=== PATIENT | female | born 1995 | race American Indian/Alaskan Native ===

== ENCOUNTER 2019-06-16 16:00 | Emergency (ER) | payer SELFPAY ==
--- NOTE | 2019-06-16 16:19 | Emergency Department Report ---
Blank Doc - Documentation Documentation: 24-year-old female that presents with urinary changes. This initial assessment/diagnostic orders/clinical plan/treatment(s) is/are subject to change based on patient's health status, clinical progression and re- assessment by fellow clinical providers in the ED. Further treatment and workup at subsequent clinical providers discretion. Patient/guardians urged not to elope from the ED as their condition may be serious if not clinically assessed and managed. Initial orders include: 1- Patient sent to [facility] for further evaluation and treatment 2- UA
[2019-06-16 16:22] VITALS: BP 104/58
[2019-06-16 17:07] LABS: Bacteria,Urine 1+ /HPF (Negative); Bilirubin,Urine NEG (Negative); Blood,Urine LG (Negative); Color,Urine Amber (Yellow); Mucus,Urine 2+ /HPF
[2019-06-16 17:10] LABS: RBC,Urine > 182.0 /HPF (0.0-6.0); WBC,Urine > 182.0 /HPF (0.0-6.0)
[2019-06-16 17:12] LABS: HCG Qualitative,Urine Negative (Negative)
[2019-06-16] MEDS ORDERED: LIDOCAINE-MPF (1%) 10 MG/1 ML VIAL 5 ML INFILTRATI ONE (20:33)
--- NOTE | 2019-06-16 20:38 | Emergency Department Report ---
ED Female HPI - General Chief complaint: Urogenital-Female Stated complaint: UTI Time Seen by Provider: 06/16/19 16:18 Source: patient Mode of arrival: Ambulatory Limitations: No Limitations - History of Present Illness Initial comments: Patient is a 24-year-old female presents emergency room with complaints of dysuria that began 3 days ago. Patient states she has associated suprapubic pressure. She denies any nausea, vomiting, fever, back pain, any other symptoms. She does not report any vaginal discharge or vaginal complaints. She states she does not have any past medical history. She denies any allergies medications. Last menstrual cycle 05/31/19. - Related Data Previous Rx's Medication Instructions Recorded Last Taken Type Phenazopyridine [Pyridium] 100 mg PO TID PRN #10 tab 06/16/19 Unknown Rx cephALEXin [Keflex] 500 mg PO Q12HR 7 Days #14 cap 06/16/19 Unknown Rx Allergies Allergy/AdvReac Type Severity Reaction Status Date / Time No Known Allergies Allergy Unverified 06/16/19 16:14 ED Review of Systems ROS: Stated complaint: UTI Other details as noted in HPI Comment: All other systems reviewed and negative ED Past Medical Hx - Past Medical History Previous Medical History?: No - Surgical History Past Surgical History?: No - Social History Smoking Status: Current Every Day Smoker Substance Use Type: None - Medications Home Medications: Home Medications Medication Instructions Recorded Confirmed Last Taken Type Phenazopyridine [Pyridium] 100 mg PO TID PRN #10 tab 06/16/19 Unknown Rx cephALEXin [Keflex] 500 mg PO Q12HR 7 Days #14 cap 06/16/19 Unknown Rx ED Physical Exam - General Limitations: No Limitations General appearance: alert, in no apparent distress - Head Head exam: Present: atraumatic, normocephalic - Eye Eye exam: Present: normal appearance - ENT ENT exam: Present: mucous membranes moist - Respiratory Respiratory exam: Present: normal lung sounds bilaterally. Absent: respiratory distress, wheezes, rales, rhonchi, stridor, chest wall tenderness, accessory muscle use, decreased breath sounds, prolonged expiratory - Cardiovascular Cardiovascular Exam: Present: regular rate, normal rhythm, normal heart sounds. Absent: systolic murmur, diastolic murmur, rubs, gallop - GI/Abdominal GI/Abdominal exam: Present: soft, normal bowel sounds. Absent: distended, guarding, rebound, rigid - Back Exam Back exam: Absent: CVA tenderness (R), CVA tenderness (L) - Neurological Exam Neurological exam: Present: alert, oriented X3 - Psychiatric Psychiatric exam: Present: normal affect, normal mood - Skin Skin exam: Present: warm, dry, intact ED Course Vital Signs 06/16/19 06/16/19 16:21 21:03 Temperature 98.3 F Pulse Rate 84 88 Respiratory 16 16 Rate Blood Pressure 104/58 O2 Sat by Pulse 98 99 Oximetry ED Medical Decision Making - Medical Decision Making Patient is a 24-year-old female presents emergency room with complaints of dysuria that began 3 days ago. Patient states she has associated suprapubic pressure. She denies any nausea, vomiting, fever, back pain, any other symptoms. She does not report any vaginal discharge or vaginal complaints. She states she does not have any past medical history. She denies any allergies medications. Last menstrual cycle 05/31/19. vitals are normal. UA with evidence of UTI with many WBCs, RBCs, leukocyte esterase and nitrites. urine preg is negative. pt given 1 g of ceftriaxone on the emergency department. Patient given prescription for Keflex and pyridium. advised pt to please take medication as prescribed. Increase your water intake over the next several days. Please follow-up with a primary care doctor in the next 2-3 days and have your urine retested. Return to the emergency room for any new or worsening symptoms. Critical care attestation.: If time is entered above; I have spent that time in minutes in the direct care of this critically ill patient, excluding procedure time. ED Disposition Clinical Impression: UTI (urinary tract infection) Qualifiers: Urinary tract infection type: acute cystitis Hematuria presence: with hematuria Qualified Code(s): N30.01 - Acute cystitis with hematuria Disposition: TO HOME OR SELFCARE Is pt being admited?: No Does the pt Need Aspirin: No Condition: Stable Instructions: Urinary Tract Infection in Women (ED) Additional Instructions: Please take medication as prescribed. Increase your water intake over the next several days. Please follow-up with a primary care doctor in the next 2-3 days and have your urine retested. Return to the emergency room for any new or worsening symptoms. Prescriptions: cephALEXin [Keflex] 500 mg PO Q12HR 7 Days #14 cap Phenazopyridine [Pyridium] 100 mg PO TID PRN #10 tab PRN Reason: pain Referrals: SANA WALLACE MD [Staff Physician] - 2-3 Days [facility] [Outside] - 2-3 Days Time of Disposition: 20:39 Print Language: ROMANIAN
== END 2019-06-16 21:03 | disposition home or self-care (01) ==
LOC: ED 16:00
DX: N39.0 Urinary tract infection, site not specified (principal); F17.200 Nicotine dependence, unspecified, uncomplicated; Z79.899 Other long term (current) drug therapy
CPT/HCPCS: 81001; 81025; 96372; 99283; J0696